=== PATIENT | male | born 1950 | race African-American/Black ===

== ENCOUNTER 2017-09-05 12:30 | Observation (INO) | payer OTHER ==
[2017-09-05 13:24] VITALS: BMI 28.3
[2017-09-05] MEDS: PANTOPRAZOLE 40 MG INJ IV SCH ×2 (14:55→21:50)
[2017-09-05] MEDS: SODIUM CHLORIDE 0.9% 10ML INJ IV SCH ×2 (14:55→21:50)
[2017-09-05] MEDS ORDERED: NA CHLORIDE 0.9% 250 ML ONE (15:19)
--- NOTE | 2017-09-05 17:19 | RAD REPORT ---
EXAM DESCRIPTION: CT - Abdomen Pelvis W Contrast - 09/05/2017 4:59 pm CLINICAL HISTORY: Anemia, abdominal pain COMPARISON: CT November 2016 TECHNIQUE: Biphasic, helical CT imaging of the abdomen and pelvis was performed following 100 ml non -ionic IV contrast. Oral contrast was given. All CT scans are performed using dose optimization technique as appropriate and may include automated exposure control or mA/KV adjustment according to patient size. FINDINGS: No suspicious findings in the lung bases. No pericardial effusion. Liver and spleen show no focal abnormalities. There is no splenomegaly. No pancreatic or peripancreat ic abnormality. Gallbladder and biliary tree are also without suspicious finding. Symmetric renal function is seen with no hydronephrosis or suspicious renal mass. No pyelonephritis o r acute renal parenchymal process. No adrenal abnormality. Urinary bladder shows no suspicious findin g. No gastric dilatation or gastric wall thickening. No dilated small bowel loops. Patient has a large r ight inguinal hernia containing multiple loops of small bowel. No congestion or edema. Ileocecal valv e is still within the peritoneal cavity. A normal appendix is still within the peritoneal cavity. Mildly prominent prostate gland noted. No seminal vesicle abnormality. No free air, free fluid or inf lammatory stranding. No hernia, mass or bulky lymphadenopathy. The urinary bladder is without signif icant finding. No adrenal abnormality. No suspicious bony findings. IMPRESSION: No splenomegaly, mass or other suspicious finding as a source for anemia. Patient has a known large right inguinal hernia containing multiple loops of distal small bowel. No a ctive process seen.
[2017-09-06] MEDS: PANTOPRAZOLE 40 MG INJ IV SCH (08:13)
[2017-09-06] MEDS: SODIUM CHLORIDE 0.9% 10ML INJ IV SCH (08:20)
[2017-09-06] MEDS ORDERED: VERAPAMIL SR 240 MG TABLET PO SCH (09:00)
[2017-09-06] MEDS ORDERED: VALSARTAN 160 MG TAB PO SCH (09:00)
[2017-09-06] MEDS ORDERED: hydroCHLOROthiazide 25 MG TAB PO SCH (09:00)
[2017-09-06 09:28] VITALS: O2SAT 98
[2017-09-06] MEDS ORDERED: NA CHLORIDE 0.9% 250 ML ONE (10:49)
--- NOTE | 2017-09-06 13:49 | HP ---
Date of Admission: 09/05/2017 Reason For Admission: Severe anemia with a hemoglobin of 5 g. History Of Present Illness: A 66-year-old male who has been having iron deficiency, chronic anemia; however, during the exam last week, he was found to have conjunctival pallor. Outpatient blood work showed hemoglobin of 5 g. In view of critical anemia at his age, the patient is admitted for observa tion for transfusion. It has been documented in my office note as well as previous admission, the pa joelle is reluctant to go through GI workup for various reasons including difficulty with finances, mu ltiple discussions were made in the office in view of this severe iron deficiency anemia. Past Medical History: Positive for hypertension. Family History: Noncontributory. Personal History: The patient has no known allergies. Home Medicines: Please refer to the chart. Review of Systems: Denies any chest pain. Physical Examination: General: Revealed a 66-year-old male, pale looking. HEENT: Otherwise negative. Blood pressure normal. Neck: Supple. JVD negative. Chest: Clear. Heart: Regular. Abdomen: Nontender. Extremities: No edema. Assessment: 1.Severe anemia. 2.Probable chronic gastrointestinal loss. 3.Hypertension. Plan: The patient received 2 units of packed RBC, still hemoglobin is 7.5. He will receive another unit of packed RBCs. There is no GI Service. The patient will be discharged and again pressure will be put on the patient to undergo GI workup in view of continued anemia severe enough to need blood t ransfusions. RAMA/STARLA Voice ID: [id number]
[2017-09-06 17:02] LABS: Hematocrit 31.7 % (39.6-49.0)
[2017-09-06 18:37] VITALS: BP 161/83; TEMP 99.3
== END 2017-09-06 18:39 | disposition home or self-care (01) ==
LOC: 2ND 13:06
PROVIDERS: ADMIT Internal Medicine; ATTEND Internal Medicine
PROC: 30233N1 Transfusion of Nonautologous Red Blood Cells into Peripheral Vein, Percutaneous Approach (ICD-10-PCS; principal; 2017-09-05)
DX: D50.9 Iron deficiency anemia, unspecified (principal); I10 Essential (primary) hypertension
CPT/HCPCS: 36415; 36430; 74177; 85014 ×2; 85018 ×2; 86850; 86900; 86901; C9113 ×3; P9016 ×3; Q9967

== ENCOUNTER 2017-10-04 00:24 | Inpatient (IN) | payer OTHER ==
[2017-10-04] MEDS ORDERED: ONDANSETRON 4 MG/2 ML VIAL ONE (02:14)
[2017-10-04] MEDS ORDERED: FENTANYL CITR 100 MCG/2 ML ONE ×5 (02:14→16:38)
[2017-10-04 02:40] LABS: Hematocrit 30.2 % (39.6-49.0); MCH 17.8 pg (27.0-35.0); MCV 60.8 fL (80-100); RBC Red Blood Cell Count 4.98 M/uL (4.33-5.43)
[2017-10-04 03:15] LABS: Urine Blood NEGATIVE (NEG); Urine Glucose NEGATIVE (NEG); Urine Protein TRACE (NEG)
[2017-10-04 03:18] LABS: Urine Bacteria <20 /HPF (NONE SEEN); Urine Culture Reflex Order REFLEXED; Urine RBC <5 /HPF (NONE SEEN)
[2017-10-04 03:26] LABS: Blood Morphology Comment NOTED (NOT SEEN); Platelet Estimate ADEQ
[2017-10-04 03:27] LABS: Anisocytosis 2+; Hypochromasia 3+; Polychromasia 2+
--- NOTE | 2017-10-04 03:27 | EDPHYS ---
Physician Documentation [facility] Name: Orville Menchaca Age: 66 yrs Sex: Male : 1950 Arrival Date: 10/04/2017 Time: 00:24 Bed 15 Private MD: Yonathan Lei R ED Physician Jef Kinney HPI: 10/04 03:48 This 66 yrs old Black Male presents to ER via Ambulatory with complaints of Abdominal wa Pain. 03:48 The patient presents with scrotal pain, with swelling, swelling, of the right inguinal wa area, tenderness, of the right inguinal area. Onset: The symptoms/episode began/occurred 12 hour(s) ago. Modifying factors: The symptoms are alleviated by nothing, the symptoms are aggravated by nothing. Associated signs and symptoms: Pertinent negatives: constipation, diarrhea, dysuria, fever, hematuria, nausea, vomiting. Severity of symptoms: At their worst the symptoms were moderate, in the emergency department the symptoms are unchanged. The patient has not experienced similar symptoms in the past. The patient has not recently seen a physician. h/o intermittent R groin swelling x 1 yr. today, squat to parts picker heavy box and felt large bulge which is now not able to go back in. Historical: - Allergies: 00:38 No Known Allergies; bb - Home Meds: 00:38 verapamil 240 mg Oral TbER 1 tab once daily for Hypertension [Active]; unknown HTN med bb [Active]; - PMHx: 00:38 Hypertension; bb - PSHx: 00:38 umbilical hernia; bb - Immunization history:: Adult Immunizations up to date. - Social history:: Smoking status: Patient uses tobacco products, denies chronic smoking, but will smoke occasionally, Patient uses alcohol, occasionally. Patient/guardian denies using street drugs. - Ebola Screening: : No symptoms or risks identified at this time. - Family history:: not pertinent. - Hospitalizations: : No recent hospitalization is reported. ROS: 03:54 Constitutional: Negative for fever, chills, and weight loss, Eyes: Negative for injury, wa pain, redness, and discharge, ENT: Negative for injury, pain, and discharge, Neck: Negative for injury, pain, and swelling, Cardiovascular: Negative for chest pain, palpitations, and edema, Respiratory: Negative for shortness of breath, cough, wheezing, and pleuritic chest pain, Back: Negative for injury and pain, MS/Extremity: Negative for injury and deformity, Skin: Negative for injury, rash, and discoloration, Neuro: Negative for headache, weakness, numbness, tingling, and seizure, Psych: Negative for depression, anxiety, suicide ideation, homicidal ideation, and hallucinations. 03:54 Abdomen/GI: Positive for abdominal pain, of the right lowe abdomen, Negative for nausea, vomiting, diarrhea. 03:54 : Positive for large non-reducible R inguinal hernia, Negative for urinary frequency, hematuria. 03:54 All other systems are negative. Exam: 03:56 Constitutional: This is a well developed, well nourished patient who is awake, alert, wa and in no acute distress. Head/Face: Normocephalic, atraumatic. Eyes: Pupils equal round and reactive to light, extra-ocular motions intact. Lids and lashes normal. Conjunctiva and sclera are non-icteric and not injected. Cornea within normal limits. Periorbital areas with no swelling, redness, or edema. ENT: Nares patent. No nasal discharge, no septal abnormalities noted. Tympanic membranes are normal and external auditory canals are clear. Oropharynx with no redness, swelling, or masses, exudates, or evidence of obstruction, uvula midline. Mucous membranes moist. Neck: Trachea midline, no thyromegaly or masses palpated, and no cervical lymphadenopathy. Supple, full range of motion without nuchal rigidity, or vertebral point tenderness. No Meningismus. Chest/axilla: Normal chest wall appearance and motion. Nontender with no deformity. No lesions are appreciated. Cardiovascular: Regular rate and rhythm with a normal S1 and S2. No gallops, murmurs, or rubs. Normal PMI, no JVD. No pulse deficits. Respiratory: Lungs have equal breath sounds bilaterally, clear to auscultation and percussion. No rales, rhonchi or wheezes noted. No increased work of breathing, no retractions or nasal flaring. Back: No spinal tenderness. No costovertebral tenderness. Full range of motion. Skin: Warm, dry with normal turgor. Normal color with no rashes, no lesions, and no evidence of cellulitis. MS/ Extremity: Pulses equal, no cyanosis. Neurovascular intact. Full, normal range of motion. Neuro: Awake and alert, GCS 15, oriented to person, place, time, and situation. Cranial nerves II-XII grossly intact. Motor strength 5/5 in all extremities. Sensory grossly intact. Cerebellar exam normal. Normal gait. Psych: Awake, alert, with orientation to person, place and time. Behavior, mood, and affect are within normal limits. 03:56 Abdomen/GI: Inspection: abdomen appears normal, Bowel sounds: normal, Palpation: soft, in all quadrants, mild abdominal tenderness, in the right lower quadrant. 03:56 : Male external genitalia: large R inguinal hernia. non-reducible. Vital Signs: 00:38 BP 186 / 97; Pulse 94; Resp 16 S; Temp 98.7(O); Pulse Ox 100% on R/A; Weight 79.38 kg bb (R); Height 5 ft. 6 in. (167.64 cm) (R); Pain 10/10; 04:17 BP 160 / 89; Pulse 89; Resp 18; Pulse Ox 99% on R/A; Pain 8/10; lc1 05:12 BP 142 / 90; Pulse 83; Resp 18; Temp 98.6(TE); Pulse Ox 99% on R/A; Pain 3/10; lc1 00:38 Body Mass Index 28.25 (79.38 kg, 167.64 cm) bb Procedures: 03:59 Performed hernia reduction: placed in Trendelenburg after a dose of IV fentanyl wa administered. Direct pressure applied for over 2-3 minutes in attempted reduction. unsuccessful. Patient tolerated procedure well. MDM: 01:26 Patient medically screened. ar 04:02 Differential diagnosis: concern for acute incarcerated R inguinal hernia with potential wa bowel obstruction. will check labs, CT and reassess. Data reviewed: vital signs, nurses notes. Test interpretation: by ED physician or midlevel provider: CT abd/pelvis: high grade SBO secondary to large R inguinal hernia with entrapment and incarceration of a moderate length segment of the ileum, including the ileocecal valve and the cecum. Response to treatment: the patient's symptoms have mildly improved after treatment. Physician consultation: Oscar Trent MD. ED course: accepted by Dr. Trent as first case to the OR this AM. . 04:06 Test interpretation: by ED physician or midlevel provider: labs noted for leukocytosis. ar Admission orders: after a detailed discussion of the patient's condition and case, the admit orders are written by me. 10/04 00:47 Order name: Urine Dipstick--Ancillary (enter results); Complete Time: 03:42 2 10/04 02:04 Order name: Basic Metabolic Panel ar 10/04 02:04 Order name: CBC with Diff; Complete Time: 03:42 ar 10/04 02:04 Order name: Hepatic Function ar 10/04 02:04 Order name: Lipase ar 10/04 02:04 Order name: Urine Microscopic Only; Complete Time: 03:42 ar 10/04 02:04 Order name: CT Abd/Pelvis - Without Cont ar 10/04 02:44 Order name: Manual Differential; Complete Time: 03:42 EDMS 10/04 03:13 Order name: Lactate ar 10/04 03:19 Order name: Urine Culture [facility] 10/04 02:04 Order name: IV Saline Lock; Complete Time: 02:08 ar 10/04 02:04 Order name: Labs collected and sent; Complete Time: 02:08 ar 10/04 02:04 Order name: Urine Dipstick-Ancillary (obtain specimen); Complete Time: 02:08 ar Administered Medications: 02:18 Drug: fentaNYL (PF) 100 mcg Route: IVP; Site: right antecubital; mg2 03:11 Follow up: Response: No adverse reaction; Marked relief of symptoms mg2 02:18 Drug: Zofran 4 mg Route: IVP; Site: right antecubital; mg2 03:11 Follow up: Response: No adverse reaction; Marked relief of symptoms mg2 04:01 Not Given (Physician Discretion): NS 0.45 % with KCl 20 mEq/L 1000 ml IV at 125 ml/hr ar once 04:10 Drug: D5-1/2 NS with KCl 10 mEq/L 1000 ml Route: IV; Rate: 100 ml/hr; Site: right lc1 antecubital; 04:21 Follow up: Response: No adverse reaction lc1 04:51 Follow up: IV Status: Infusion continued lc1 04:17 Drug: morphine 4 mg Route: IVP; Site: right antecubital; lc1 04:49 Follow up: Response: Pain is decreased lc1 Disposition: 10/04/17 03:26 Hospitalization ordered by Yonathan Lei for Inpatient Admission. Preliminary diagnosis are Acute Incarcerated Right Inguinal Hernia, Acute small bowel obstruction secondary to right incarcerated inguinal hernia. - Bed requested for Telemetry/MedSurg (Inpatient). - Status is Inpatient Admission. lc1 - Condition is Stable. - Problem is new. - Symptoms are unchanged. UTI on Admission? No Signatures: Dispatcher [employer] EDNi Domingo RN RN kl Ballard, Brenda, RN RN Brittaney Fields 1 Jef Kinney MD MD wa Gardose, Michele, RN RN mg2 Corrections: (The following items were deleted from the chart) 03:26 03:26 Hospitalization Ordered by Yonathan Lei MD for Inpatient Admission. Preliminary ar diagnosis is Acute Incarcerated Right Inguinal Hernia. Bed requested for Telemetry/MedSurg (Inpatient). Status is Inpatient Admission. Condition is Stable. Problem is new. Symptoms are unchanged. UTI on Admission? No. ar 04:07 03:26 10/04/2017 03:26 Hospitalization Ordered by Yonathan Lei MD for Inpatient ar Admission. Preliminary diagnosis is Acute Incarcerated Right Inguinal Hernia. Bed requested for Telemetry/MedSurg (Inpatient). Status is Inpatient Admission. Condition is Stable. Problem is new. Symptoms are unchanged. UTI on Admission? No. ar 04:59 04:07 10/04/2017 03:26 Hospitalization Ordered by Yonathan Lei MD for Inpatient Admission. Preliminary diagnosis is Acute Incarcerated Right Inguinal Hernia; Acute small bowel obstruction secondary to right incarcerated inguinal hernia. Bed requested for Telemetry/MedSurg (Inpatient). Status is Inpatient Admission. Condition is Stable. Problem is new. Symptoms are unchanged. UTI on Admission? No. ar 05:42 04:59 10/04/2017 03:26 Hospitalization Ordered by Yonathan Lei MD for Inpatient [facility] Admission. Preliminary diagnosis is Acute Incarcerated Right Inguinal Hernia; Acute small bowel obstruction secondary to right incarcerated inguinal hernia. Bed requested for Telemetry/MedSurg (Inpatient). Status is Inpatient Admission. Condition is Stable. Problem is new. Symptoms are unchanged. UTI on Admission? No.
--- NOTE | 2017-10-04 03:27 | ER ---
Nurse's Notes [facility] Name: Orville Menchaca Age: 66 yrs Sex: Male : 1950 Arrival Date: 10/04/2017 Time: 00:24 Bed 15 Private MD: Yonathan Lei R Diagnosis: Acute Incarcerated Right Inguinal Hernia;Acute small bowel obstruction secondary to right incarcerated inguinal hernia Presentation: 10/04 00:35 Presenting complaint: Patient states: he started having groin pain today thinks it is bb his hernia pt indicated pain is in the right groin. pt denies N/V/D. Transition of care: patient was not received from another setting of care. Onset of symptoms was October 04, 2017. Risk Assessment: Do you want to hurt yourself or someone else? Patient reports no desire to harm self or others. Initial Sepsis Screen: Does the patient meet any 2 criteria? No. Patient's initial sepsis screen is negative. Does the patient have a suspected source of infection? No. Patient's initial sepsis screen is negative. Care prior to arrival: None. 00:35 Method Of Arrival: Ambulatory bb 00:35 Acuity: YOEL 3 bb Historical: - Allergies: 00:38 No Known Allergies; bb - Home Meds: 00:38 verapamil 240 mg Oral TbER 1 tab once daily for Hypertension [Active]; unknown HTN med bb [Active]; - PMHx: 00:38 Hypertension; bb - PSHx: 00:38 umbilical hernia; bb - Immunization history:: Adult Immunizations up to date. - Social history:: Smoking status: Patient uses tobacco products, denies chronic smoking, but will smoke occasionally, Patient uses alcohol, occasionally. Patient/guardian denies using street drugs. - Ebola Screening: : No symptoms or risks identified at this time. - Family history:: not pertinent. - Hospitalizations: : No recent hospitalization is reported. Screenin:36 Abuse screen: Denies threats or abuse. Denies injuries from another. Nutritional mg2 screening: No deficits noted. Tuberculosis screening: No symptoms or risk factors identified. Fall Risk None identified. Assessment: 00:36 General: Appears in no apparent distress. comfortable, Behavior is calm, cooperative. mg2 Pain: Complains of pain in inguinal area Pain does not radiate. Pain Quality of pain is described as aching, Pain began gradually. Neuro: Level of Consciousness is awake, alert, obeys commands, Oriented to person, place, time, situation. Cardiovascular: Capillary refill < 3 seconds Patient's skin is warm and dry. Respiratory: Airway is patent Respiratory effort is even, unlabored, Respiratory pattern is regular, symmetrical. GI: Abdomen is. EENT: No signs and/or symptoms were reported regarding the EENT system. Derm: Skin is intact, Skin is pink, warm \T\ dry. normal. Musculoskeletal: Circulation, motion, and sensation intact. 00:47 GI: Bowel sounds present X 4 quads. Abd is soft X 4 quads Reports groin pain. mg2 02:54 Reassessment: patient in ct scan. mg2 03:10 Reassessment: patient is to be referred to surgery. endorsed patient to ZABRINA Quispe for mg2 continuity of care. 04:17 Reassessment: Patient and/or family updated on plan of care and expected duration. Pain lc1 level reassessed. patient medicated for pain, remains in Trendelenburg per Dr Trent, patient informed of plan for surgery this am, he will be first case, pillow and blanket given, iv fluids infusing to intact RAC IV . Vital Signs: 00:38 BP 186 / 97; Pulse 94; Resp 16 S; Temp 98.7(O); Pulse Ox 100% on R/A; Weight 79.38 kg bb (R); Height 5 ft. 6 in. (167.64 cm) (R); Pain 10/10; 04:17 BP 160 / 89; Pulse 89; Resp 18; Pulse Ox 99% on R/A; Pain 8/10; lc1 05:12 BP 142 / 90; Pulse 83; Resp 18; Temp 98.6(TE); Pulse Ox 99% on R/A; Pain 3/10; lc1 00:38 Body Mass Index 28.25 (79.38 kg, 167.64 cm) bb ED Course: 00:24 Patient arrived in ED. ds1 00:25 Yonathan Lei MD is Private Physician. ds1 00:32 Tejas Cuevas, ZABRINA is Primary Nurse. mg2 00:37 Triage completed. bb 00:38 Arm band placed on Patient placed in an exam room, on a stretcher, on pulse oximetry. bb 00:46 Patient has correct armband on for positive identification. Placed in gown. Bed in low mg2 position. Call light in reach. Side rails up X 1. Door closed. Warm blanket given. Head of bed elevated. 01:26 Jef Kinney MD is Attending Physician. wa 02:19 Inserted saline lock: 20 gauge in right antecubital area, using aseptic technique. mg2 Blood collected. by ZABRINA Miles. 02:[address] via wheelchair. kw1 02:53 CT Abd/Pelvis - Without Cont In Process Unspecified. EDMS 03:09 CT completed. Patient tolerated procedure well. Patient moved back from CT. kw1 03:22 Primary Nurse role handed off by Tejas Cuevas RN rg2 03:25 Yonathan Lei MD is Hospitalizing Provider. wa 04:17 No provider procedures requiring assistance completed. 1 05:01 Patient admitted, IV remains in place. lc1 Administered Medications: 02:18 Drug: fentaNYL (PF) 100 mcg Route: IVP; Site: right antecubital; mg2 03:11 Follow up: Response: No adverse reaction; Marked relief of symptoms mg2 02:18 Drug: Zofran 4 mg Route: IVP; Site: right antecubital; mg2 03:11 Follow up: Response: No adverse reaction; Marked relief of symptoms mg2 04:01 Not Given (Physician Discretion): NS 0.45 % with KCl 20 mEq/L 1000 ml IV at 125 ml/hr wa once 04:10 Drug: D5-1/2 NS with KCl 10 mEq/L 1000 ml Route: IV; Rate: 100 ml/hr; Site: right lc1 antecubital; 04:21 Follow up: Response: No adverse reaction lc1 04:51 Follow up: IV Status: Infusion continued 1 04:17 Drug: morphine 4 mg Route: IVP; Site: right antecubital; lc1 04:49 Follow up: Response: Pain is decreased [facility] Outcome: 03:26 Decision to Hospitalize by Provider. wa 05:00 Admitted to Tele [facility] 05:00 Condition: stable 05:00 Instructed on the need for admit. 05:01 Admitted to [facility] 05:40 Admitted to Tele accompanied by tech, via stretcher, with chart, Report called to [facility] 05:42 Patient left the ED. [facility] Signatures: Dispatcher [employer] EDMS Salo Elizalde rg2 Shelley Humphreys ds1 Leti Mora RN RN Brittaney Fields lc1 Jef Kinney MD MD ut Ni [facility] Tejas Cuevas RN RN mg2 Corrections: (The following items were deleted from the chart) 04:21 04:10 Brittaney Fields is Primary Nurse. lc1 lc1
[2017-10-04] MEDS ORDERED: D5.45NS W/KCL 20MEQ 1,000 ML IV ONE (03:52)
[2017-10-04] MEDS ORDERED: MORPHINE 4 MG/ML SYR ONE ×2 (04:16→13:13)
[2017-10-04 04:26] LABS: Albumin 3.5 g/dL (3.4-5.0); Bilirubin Direct 0.1 mg/dL (0-0.2); Bilirubin Total 0.5 mg/dL (0.2-1.0); Potassium 4.7 mmol/L (3.5-5.1); Protein, Total 8.3 g/dL (6.4-8.2)
[2017-10-04] MEDS ORDERED: ONDANSETRON 4 MG/2 ML VIAL IV PRN (05:54)
[2017-10-04] MEDS ORDERED: MORPHINE 4 MG/ML SYR IV PRN ×2 (05:54→17:38)
[2017-10-04] MEDS ORDERED: ACETAMINOPHEN 500 MG TAB PO PRN (05:54)
[2017-10-04 05:59] VITALS: BMI 28.0
[2017-10-04] MEDS: D5 0.45 NS 1,000 ML IV SCH ×4 (06:17→20:30)
[2017-10-04] MEDS ORDERED: PNEUMOCOCCAL VACCINE 0.5 ML IMVAC ONE (08:00)
--- NOTE | 2017-10-04 08:28 | RAD REPORT ---
EXAM DESCRIPTION: CT - Abdomen Pelvis Wo Contrast - 10/04/2017 4:20 am CLINICAL HISTORY: Abdominal pain. abd pain. R groin hernia. r/o strangulation COMPARISON: Abdomen Pelvis W Contrast dated 09/05/2017; Abdomen Pelvis W Contrast dated 11/22/2016 TECHNIQUE: CT imaging of the abdomen and pelvis was performed without contrast. Solid organ, bowel a nd vascular assessment is limited due to lack of IV and oral contrast. All CT scans are performed using dose optimization technique as appropriate and may include automated exposure control or mA/KV adjustment according to patient size. FINDINGS: The lower lung loco are clear. The liver, spleen, pancreas, adrenal glands and kidneys are within normal limits for a limited non-co ntrast examination. Multiple dilated small bowel loops are present in the abdomen. There is a very large right-sided ingu inal hernia containing large and small bowel loops is was is mild fluid. Caliber change of the small intestine is noted as it enters hernia sac. The ileum, ileocecal valve and cecum all are located with in the hernia sac. No free intraperitoneal air. No significant free fluid or abscess. The osseous structures are within normal limits. IMPRESSION: Large incarcerated right inguinal hernia is present with significant resultant small-bow el obstruction present. A limited non-contrast examination was performed as detailed.
[2017-10-04] MEDS ORDERED: GLYCOPYRROLATE 0.2 MG/ML SYR ONE ×2 (08:56→17:15)
[2017-10-04] MEDS ORDERED: PROPOFOL 200 MG/20 ML VIAL IV ONE ×2 (08:56→15:35)
[2017-10-04] MEDS ORDERED: LIDOCAINE 2% MPF 5 ML VIAL ONE ×2 (08:57→15:37)
[2017-10-04] MEDS ORDERED: ROCURONIUM 50 MG/5 ML VIAL IV ONE ×2 (08:59→15:37)
[2017-10-04] MEDS ORDERED: NEOSTIGMINE 1 MG/ML -5 ML SYRINGE ONE ×2 (08:59→17:15)
[2017-10-04] MEDS ORDERED: ONDANSETRON HCL 40 MG/20 ML VIAL ONE ×2 (08:59→16:05)
[2017-10-04] MEDS ORDERED: Ringers Lactate 1,000 ML IV ONE ×2 (15:08→17:34)
--- NOTE | 2017-10-04 15:08 | P.HP ---
Date of Service: 10/04/17 PC: This 66-year-old male presents emergency room with severe right groin pain for diagnosis and treatment. HPC: Patient is at a a right inguinal hernia for brought the last year so. Recently squatted to crab picker something and when he did his hernia popped out, he has been unable to replace it. PMH: Hypertension PSHx: NAD SOC: No known allergies SYS REVIEW: States he has otherwise been in good health, denies any trouble voiding on his own. O/E awake alert comfortable at the moment HEENT: Within normal limits Chest: Chest movement equal bilateral ABD: Right inguinal hernia, not able to be reduced LOCO: Intact DATA: Within normal limits IMPRESSION: Right inguinal hernia, incarcerated PLAN: I will take him to the operating room for laparoscopic reduction and repair repair of this right inguinal hernia. We will try and do a Tameka repair. The risks of this procedure have been discussed. The possibility of bleeding, infection, injury to bowel and surrounding blood vessels and nerves was explained. The possibility of recurrence was described. An open an further procedures was also outlined. He understands and wants us to proceed.
[2017-10-04] MEDS ORDERED: CEFAZOLIN/SWI 1gm 1 GM/10 ML SYR ONE (15:37)
[2017-10-04] MEDS ORDERED: DEXAMETHASONE 10 MG/ML VIAL ONE (16:05)
[2017-10-04] MEDS ORDERED: KETOROLAC 30 MG/ML INJ ONE (16:05)
[2017-10-04] MEDS ORDERED: HYDRALAZINE HCL 20 MG/ML VIAL ONE (17:15)
--- NOTE | 2017-10-04 17:23 | P.OP ---
Preoperative diagnosis: Incarcerated right inguinal hernia Postoperative diagnosis: Incarcerated right inguinal hernia Primary procedure: Laparoscopic reduction of incarcerated right inguinal hernia Secondary procedure: Laparoscopic repair of right inguinal hernia with mesh Anesthesia: General Estimated blood loss: Less than 20 cc Specimen: None sudden Findings: Incarcerated right inguinal hernia Operative Technique: The patient brought the operating room and placed supine on the table. After the induction of adequate general endotracheal anesthesia, the area of the abdomen was prepped with a DuraPrep solution after the insertion of a Hayes catheter, he was draped in usual aseptic manner. A subumbilical incision was made. This was brought down through the skin and subcutaneous tissue. The Visiport was used to enter the peritoneal cavity and created pneumoperitoneum to approximately 12 mm of mercury. Under direct vision a 5 mm trocar was placed on the right and left lateral sides of the abdomen. With the patient placed in marked Trendelenburg and rolled to the left we could visualize the right lower quadrant. We could see that there was a marked amount of small bowel heading out towards the internal ring. Applying gentle pressure externally as well as mild traction from the inside we were attached to we able to gradually reduce this hernia out of the scrotum. There was no evidence of vascular compromise. Just at the apex of this there was a adhesion of the distal ileum that resulted in the sliding hernia causing mass incarceration. The bowel was happy been reduced back into the peritoneal cavity was inspected to ensure once again there was no evidence of any compromise. This having mean down the peritoneum was opened from the right superior iliac crest medially. The peritoneum was now dissected down. As we encounter the internal ring, the peritoneum was divided off of the spermatic cord. We considered at dissection medially. Anish's ligament was identified. At this point a piece of right medium mesh was introduced into the preperitoneal space. We were able to fix it using the Pro Tacker to the Anish' s ligament. It was also fixed out laterally. The superior edge was fixed now against the anterior abdominal wall. The peritoneum that had been taken down was placed up over the mesh to securely fixed in place and re-establish peritoneal continuity. At this point the peritoneal cavity was inspected to ensure adequate hemostasis. There was noted be some bleeding from around the trocar site on the left with bilateral abdominal wall. This was controlled using the Endo Close in 2 separate was placed sutures of absorbable material. Attention was now turned towards the umbilicus. With the patient flat on the OR table and taken out of Trendelenburg we were able approximate the facile defect at the umbilicus. 2 used interrupted sutures were placed. 1 using the Endo Close noted with a free stitch. At this point lauren were applied to the skin. At the end of the procedure he was in a stable condition when sent to the recovery room. Needle sponge instrument count were correct. No drains were placed. The Hayes catheter had been discontinued. Complications: None Transferred to: Recovery Room Condition: Good
[2017-10-04 20:07] VITALS: O2SAT 95
[2017-10-04] MEDS: HYDROCODONE/APAP 7.5/325 MG TAB PO PRN (20:30)
[2017-10-05] MEDS: HYDROCODONE/APAP 7.5/325 MG TAB PO PRN ×2 (04:01→10:32)
[2017-10-05] MEDS: D5 0.45 NS 1,000 ML IV SCH (06:48)
[2017-10-05 08:34] VITALS: BP 162/86; TEMP 97.9
--- NOTE | 2017-10-05 09:11 | P.PN ---
Date of Service: 10/05/17 S: Patient feels well today, has been up ambulating, voiding on his own. O: Abdomen is soft, no evidence of hernia, minimal swelling in the scrotum. A: Surgically stable P: Discharge home, see me next week,
--- NOTE | 2017-10-05 17:30 | HP ---
Date of Admission: 10/04/2017 Chief Complaint: Incarcerated hernia. History Of Present Illness: A 66-year-old male was brought to the emergency room because of abdomina l pain. Evaluation was done and he was found to have incarcerated inguinal hernia on the right side. The patient was admitted. There is no history of vomiting, diarrhea, or other GI symptoms. Past Medical History: Positive for hypertension. He has history of severe anemia, possibly related to GI bleeding chronically. Family History: Hypertension present. Personal History: The patient has no known allergies. Home Medicines: Benicar, verapamil. Review of Systems: No fever, chills, rigors. Physical Examination: General: Revealed a 66-year-old male, not in acute distress. HEENT: Negative. Neck: Supple. JVD negative. Chest: Clear. Heart: Regular. Abdomen: Soft. Extremities: No edema. Laboratory Data: Hemoglobin 8.8. Normal kidney function. Assessment: 1.Incarcerated inguinal hernia, right side. 2.Hypertension. 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 Plan: The patient underwent surgery and postoperatively the patient is doing well. The patient will be discharged whenever the surgery team feels comfortable with discharge. Again, I spoke to the patient regarding workup, which he has not done yet in spite of multiple con ferences and discussions with him regarding this issue. JULIOCESAR Voice ID: [id number]
== END 2017-10-05 10:57 | disposition home or self-care (01) | DRG 352 ==
LOC: ER 00:24 → ERHOLD 04:13 → 4TH 05:11
PROVIDERS: ADMIT Internal Medicine; ATTEND Internal Medicine
PROC: 0YU54JZ Supplement Right Inguinal Region with Synthetic Substitute, Percutaneous Endoscopic Approach (ICD-10-PCS; principal; 2017-10-04 15:30)
DX: K40.30 Unilateral inguinal hernia, with obstruction, without gangrene, not specified as recurrent (principal); I10 Essential (primary) hypertension; Z72.0 Tobacco use; D50.0 Iron deficiency anemia secondary to blood loss (chronic)
CPT/HCPCS: 36415; 74176; 80048; 80076; 81003; 81015; 83605; 83690; 85025; 87077; 87086; 87088; 87186; 96361; 96374; 96375; 99285; J0360; J0690; J1100; J2405; J2710; J3010

== ENCOUNTER 2022-02-28 15:53 | Emergency (ER) | payer MEDICARE ==
--- OUTSIDE RECORDS SUMMARY | 2022-02-28 15:56 | XMS REPORT | Continuity of Care Document ---
:[address] [facility] t Address [address] [place] [address] Care Team Providers Name Role Phone Christopher Roland Attending Clinician Unavailable Tumelson_A Attending Clinician Unavailable Tumelson_A Admitting Clinician Unavailable Payers Payer Name Policy Type Policy Number Effective Date Expiration Date benigno [facility] [id number] (MEDICARE 00:00:00 REPLACEMENT HMO) Problems Condition Condition Condition Status Onset Resolution Last Treating Co mments Source Name Details Category Date Date Treatment Clinician Date [id number] Mixed Problem Common hyperlipid Spirit emia - [facility] Leukocytos Leukocytos Problem C ommon is is, Spirit unspecifie - [facility] d type [facility] [id number] Lymphocyto Problem Com mon sis [facility] - [facility] [id number] Other Problem Common obesity Spirit due to - [facility] excess [facility] [id number] Essential Problem Comm on (primary) Spirit hypertensi - [facility] on [facility] [id number] Body mass Problem Com mon index Spirit [BMI] - [facility] 30.0-30.9, [facility] [id number] Alcohol Problem Common use [facility] disorder, [facility] [id number] Tobacco Problem Commo n use Spirit disorder, - [facility] continuous [facility] Allergies, Adverse Reactions, Alerts This patient has no known allergies or adverse reactions. Social History Social Habit Start Date Stop Date Quantity Comments Source History of Tobacco Current Smoker Co mmon [facility] - [facility] Use [facility] Sex Assigned At [facility] Smoking Status Start Date Stop Date Source Current Smoker 2021-12-15 00:00:00 Common [facility] Medications Ordered Filled Start Stop Current Ordering Indication Dosage Frequency Signature Comments Components Source Medication Medication Date Date Medication? Clinician (SIG) Name Name Benzonatate Benzonatate 2021- No 1{capsu Benzonatat 100 MG 100 MG 10-20 le_as_n e 100 MG 00:00: 00:00 eeded} 00 :00 Benzonatate Benzonatate No 1{capsu Benzonatat 100 MG 100 MG 10-20 le_as_n e 100 MG 00:00: 00:00 eeded} 00 :00 amLODIPine amLODIPine No QD amLODIPine Besylate 10 Besylate 10 Besylate MG MG 10 MG Olmesartan Olmesartan No QD Olmesartan Medoxomil Medoxomil Medoxomil 40 MG 40 MG 40 MG Metoprolol Metoprolol No QD Metoprolol Succinate Succinate Succinate ER 50 MG ER 50 MG ER 50 MG amLODIPine amLODIPine No QD amLODIPine Besylate 10 Besylate 10 Besylate MG MG 10 MG Olmesartan Olmesartan No QD Olmesartan Medoxomil Medoxomil Medoxomil 40 MG 40 MG 40 MG Metoprolol Metoprolol No QD Metoprolol Succinate Succinate Succinate ER 50 MG ER 50 MG ER 50 MG Olmesartan Olmesartan No QD Olmesartan Medoxomil Medoxomil Medoxomil 40 MG 40 MG 40 MG Metoprolol Metoprolol No QD Metoprolol Succinate Succinate Succinate ER 50 MG ER 50 MG ER 50 MG amLODIPine amLODIPine No QD amLODIPine Besylate 10 Besylate 10 Besylate MG MG 10 MG Olmesartan Olmesartan No QD Olmesartan Medoxomil Medoxomil Medoxomil 40 MG 40 MG 40 MG Metoprolol Metoprolol No QD Metoprolol Succinate Succinate Succinate ER 50 MG ER 50 MG ER 50 MG amLODIPine amLODIPine No QD amLODIPine Besylate 10 Besylate 10 Besylate MG MG 10 MG Olmesartan Olmesartan No QD Olmesartan Medoxomil Medoxomil Medoxomil 40 MG 40 MG 40 MG Metoprolol Metoprolol No QD Metoprolol Succinate Succinate Succinate ER 50 MG ER 50 MG ER 50 MG amLODIPine amLODIPine No QD amLODIPine Besylate 10 Besylate 10 Besylate MG MG 10 MG amLODIPine amLODIPine No amLODIPine Besylate 10 Besylate 10 Besylate MG MG 10 MG Olmesartan Olmesartan No QD Olmesartan Medoxomil Medoxomil Medoxomil 40 MG 40 MG 40 MG amLODIPine amLODIPine No QD amLODIPine Besylate 10 Besylate 10 Besylate MG MG 10 MG Metoprolol Metoprolol No Metoprolol Succinate Succinate Succinate ER 50 MG ER 50 MG ER 50 MG Olmesartan Olmesartan No Olmesartan Medoxomil Medoxomil Medoxomil 40 MG 40 MG 40 MG Metoprolol Metoprolol No QD Metoprolol Succinate Succinate Succinate ER 50 MG ER 50 MG ER 50 MG amLODIPine amLODIPine No amLODIPine Besylate 10 Besylate 10 Besylate MG MG 10 MG Olmesartan Olmesartan No QD Olmesartan Medoxomil Medoxomil Medoxomil 40 MG 40 MG 40 MG amLODIPine amLODIPine No QD amLODIPine Besylate 10 Besylate 10 Besylate MG MG 10 MG Metoprolol Metoprolol No Metoprolol Succinate Succinate Succinate ER 50 MG ER 50 MG ER 50 MG Olmesartan Olmesartan No Olmesartan Medoxomil Medoxomil Medoxomil 40 MG 40 MG 40 MG Metoprolol Metoprolol No QD Metoprolol Succinate Succinate Succinate ER 50 MG ER 50 MG ER 50 MG Olmesartan Olmesartan No Olmesartan Medoxomil Medoxomil Medoxomil 40 MG 40 MG 40 MG Metoprolol Metoprolol No Metoprolol Succinate Succinate Succinate ER 50 MG ER 50 MG ER 50 MG Olmesartan Olmesartan No QD Olmesartan Medoxomil Medoxomil Medoxomil 40 MG 40 MG 40 MG amLODIPine amLODIPine No amLODIPine Besylate 10 Besylate 10 Besylate MG MG 10 MG amLODIPine amLODIPine No QD amLODIPine Besylate 10 Besylate 10 Besylate MG MG 10 MG Metoprolol Metoprolol No QD Metoprolol Succinate Succinate Succinate ER 50 MG ER 50 MG ER 50 MG Olmesartan Olmesartan No Olmesartan Medoxomil Medoxomil Medoxomil 40 MG 40 MG 40 MG Metoprolol Metoprolol No Metoprolol Succinate Succinate Succinate ER 50 MG ER 50 MG ER 50 MG Olmesartan Olmesartan No QD Olmesartan Medoxomil Medoxomil Medoxomil 40 MG 40 MG 40 MG amLODIPine amLODIPine No amLODIPine Besylate 10 Besylate 10 Besylate MG MG 10 MG amLODIPine amLODIPine No QD amLODIPine Besylate 10 Besylate 10 Besylate MG MG 10 MG Metoprolol Metoprolol No QD Metoprolol Succinate Succinate Succinate ER 50 MG ER 50 MG ER 50 MG Olmesartan Olmesartan No Olmesartan Medoxomil Medoxomil Medoxomil 40 MG 40 MG 40 MG Metoprolol Metoprolol No QD Metoprolol Succinate Succinate Succinate ER 50 MG ER 50 MG ER 50 MG Olmesartan Olmesartan No QD Olmesartan Medoxomil Medoxomil Medoxomil 40 MG 40 MG 40 MG amLODIPine amLODIPine No QD amLODIPine Besylate 10 Besylate 10 Besylate MG MG 10 MG amLODIPine amLODIPine No amLODIPine Besylate 10 Besylate 10 Besylate MG MG 10 MG Metoprolol Metoprolol No Metoprolol Succinate Succinate Succinate ER 50 MG ER 50 MG ER 50 MG Olmesartan Olmesartan No Olmesartan Medoxomil Medoxomil Medoxomil 40 MG 40 MG 40 MG Metoprolol Metoprolol No Metoprolol Succinate Succinate Succinate ER 50 MG ER 50 MG ER 50 MG Olmesartan Olmesartan No QD Olmesartan Medoxomil Medoxomil Medoxomil 40 MG 40 MG 40 MG amLODIPine amLODIPine No QD amLODIPine Besylate 10 Besylate 10 Besylate MG MG 10 MG amLODIPine amLODIPine No amLODIPine Besylate 10 Besylate 10 Besylate MG MG 10 MG Metoprolol Metoprolol No QD Metoprolol Succinate Succinate Succinate ER 50 MG ER 50 MG ER 50 MG amLODIPine amLODIPine No QD amLODIPine Besylate 10 Besylate 10 Besylate MG MG 10 MG Olmesartan Olmesartan No Olmesartan Medoxomil Medoxomil Medoxomil 40 MG 40 MG 40 MG Metoprolol Metoprolol No Metoprolol Succinate Succinate Succinate ER 50 MG ER 50 MG ER 50 MG Olmesartan Olmesartan No QD Olmesartan Medoxomil Medoxomil Medoxomil 40 MG 40 MG 40 MG Metoprolol Metoprolol No QD Metoprolol Succinate Succinate Succinate ER 50 MG ER 50 MG ER 50 MG amLODIPine amLODIPine No amLODIPine Besylate 10 Besylate 10 Besylate MG MG 10 MG Olmesartan Olmesartan No Olmesartan Medoxomil Medoxomil Medoxomil 40 MG 40 MG 40 MG Metoprolol Metoprolol No QD Metoprolol Succinate Succinate Succinate ER 50 MG ER 50 MG ER 50 MG Olmesartan Olmesartan No QD Olmesartan Medoxomil Medoxomil Medoxomil 40 MG 40 MG 40 MG amLODIPine amLODIPine No QD amLODIPine Besylate 10 Besylate 10 Besylate MG MG 10 MG amLODIPine amLODIPine No amLODIPine Besylate 10 Besylate 10 Besylate MG MG 10 MG Metoprolol Metoprolol No Metoprolol Succinate Succinate Succinate ER 50 MG ER 50 MG ER 50 MG Olmesartan Olmesartan No Olmesartan Medoxomil Medoxomil Medoxomil 40 MG 40 MG 40 MG Metoprolol Metoprolol No Metoprolol Succinate Succinate Succinate ER 50 MG ER 50 MG ER 50 MG Olmesartan Olmesartan No QD Olmesartan Medoxomil Medoxomil Medoxomil 40 MG 40 MG 40 MG amLODIPine amLODIPine No QD amLODIPine Besylate 10 Besylate 10 Besylate MG MG 10 MG amLODIPine amLODIPine No amLODIPine Besylate 10 Besylate 10 Besylate MG MG 10 MG Metoprolol Metoprolol No QD Metoprolol Succinate Succinate Succinate ER 50 MG ER 50 MG ER 50 MG amLODIPine amLODIPine No QD amLODIPine Besylate 10 Besylate 10 Besylate MG MG 10 MG Olmesartan Olmesartan No Olmesartan Medoxomil Medoxomil Medoxomil 40 MG 40 MG 40 MG Metoprolol Metoprolol No Metoprolol Succinate Succinate Succinate ER 50 MG ER 50 MG ER 50 MG Olmesartan Olmesartan No QD Olmesartan Medoxomil Medoxomil Medoxomil 40 MG 40 MG 40 MG Metoprolol Metoprolol No QD Metoprolol Succinate Succinate Succinate ER 50 MG ER 50 MG ER 50 MG amLODIPine amLODIPine No amLODIPine Besylate 10 Besylate 10 Besylate MG MG 10 MG Olmesartan Olmesartan No Olmesartan Medoxomil Medoxomil Medoxomil 40 MG 40 MG 40 MG amLODIPine amLODIPine No amLODIPine Besylate 10 Besylate 10 Besylate MG MG 10 MG Metoprolol Metoprolol No Metoprolol Succinate Succinate Succinate ER 50 MG ER 50 MG ER 50 MG Immunizations Ordered Immunization Filled Immunization Date Status Commen ts Source Name Name FLUZONE HIGH DOSE FLUZONE HIGH DOSE 2021-12-15 Completed [facility] OVER 65 OVER 65 09:14:00 [facility] FLUZONE HIGH DOSE FLUZONE HIGH DOSE 2021-12-15 Completed [facility] OVER 65 OVER 65 09:14:00 [facility] Prevnar 13 (PCV13) Prevnar 13 (PCV13) 2021-03-13 Completed [facility] 11:09:00 - [facility] Prevnar 13 (PCV13) Prevnar 13 (PCV13) 2021-03-13 Completed [facility] 11:09:00 [facility] Prevnar 13 (PCV13) Prevnar 13 (PCV13) 2021-03-13 Completed [facility] 11:09:00 [facility] Prevnar 13 (PCV13) Prevnar 13 (PCV13) 2021-03-13 Completed [facility] 11:09:00 [facility] Prevnar 13 (PCV13) Prevnar 13 (PCV13) 2021-03-13 Completed [facility] 11:09:00 [facility] Prevnar 13 (PCV13) Prevnar 13 (PCV13) 2021-03-13 Completed [facility] 11:09:00 [facility] Prevnar 13 (PCV13) Prevnar 13 (PCV13) 2021-03-13 Completed [facility] 11:09:00 [facility] Prevnar 13 (PCV13) Prevnar 13 (PCV13) 2021-03-13 Completed [facility] 11:09:00 [facility] Prevnar 13 (PCV13) Prevnar 13 (PCV13) 2021-03-13 Completed [facility] 11:09:00 [facility] Prevnar 13 (PCV13) Prevnar 13 (PCV13) 2021-03-13 Completed [facility] 11:09:00 [facility] Prevnar 13 (PCV13) Prevnar 13 (PCV13) 2021-03-13 Completed [facility] 11:09:00 [facility] Prevnar 13 (PCV13) Prevnar 13 (PCV13) 2021-03-13 Completed [facility] 11:09:00 - [facility] Prevnar 13 (PCV13) Prevnar 13 (PCV13) 2021-03-13 Completed [facility] 11:09:00 - [facility] Prevnar 13 (PCV13) Prevnar 13 (PCV13) 2021-03-13 Completed [facility] 11:09:00 - [facility] Prevnar 13 (PCV13) Prevnar 13 (PCV13) 2021-03-13 Completed [facility] 11:09:00 - [facility] FluAD FluAD 2020-12-10 Completed [facility] 09:51:00 - [facility] FluAD FluAD 2020-12-10 Completed [facility] 09:51:00 - [facility] FluAD FluAD 2020-12-10 Completed [facility] 09:51:00 - [facility] FluAD FluAD 2020-12-10 Completed [facility] 09:51:00 - [facility] FluAD FluAD 2020-12-10 Completed [facility] 09:51:00 - [facility] FluAD FluAD 2020-12-10 Completed [facility] 09:51:00 - [facility] FluAD FluAD 2020-12-10 Completed [facility] 09:51:00 - [facility] FluAD FluAD 2020-12-10 Completed [facility] 09:51:00 - [facility] FluAD FluAD 2020-12-10 Completed [facility] 09:51:00 - [facility] FluAD FluAD 2020-12-10 Completed [facility] 09:51:00 - [facility] FluAD FluAD 2020-12-10 Completed [facility] 09:51:00 - [facility] FluAD FluAD 2020-12-10 Completed [facility] 09:51:00 - [facility] FluAD FluAD 2020-12-10 Completed [facility] 09:51:00 - [facility] FluAD FluAD 2020-12-10 Completed [facility] 09:51:00 - [facility] FluAD FluAD 2020-12-10 Completed [facility] 09:51:00 - [facility] FluAD FluAD 2020-12-10 Completed [facility] 09:51:00 [facility] Vital Signs Vital Name Observation Time Observation Value Comments Source height 2021-12-15 08:50:00 66 [in_i] [facility] weight 2021-12-15 08:50:00 173.7 [lb_av] [facility] temperature 2021-12-15 08:50:00 97.3 [degF] [facility] bmi 2021-12-15 08:50:00 28.03 kg/m2 [facility] oximetry 2021-12-15 08:50:00 96 % [facility] respiratory rate 2021-12-15 08:50:00 17 /min Comm on [facility] blood pressure 2021-12-15 08:50:00 130 mm[Hg] [facility] systolic [facility] blood pressure 2021-12-15 08:50:00 78 mm[Hg] [facility] diastolic [facility] height 2021-10-20 08:00:00 66 [in_i] [facility] weight 2021-10-20 08:00:00 184.1 [lb_av] [facility] bmi 2021-10-20 08:00:00 29.71 kg/m2 [facility] height 2021-09-03 08:40:00 66 [in_i] [facility] weight 2021-09-03 08:40:00 184.1 [lb_av] [facility] temperature 2021-09-03 08:40:00 97.9 [degF] [facility] bmi 2021-09-03 08:40:00 29.71 kg/m2 [facility] oximetry 2021-09-03 08:40:00 100 % [facility] respiratory rate 2021-09-03 08:40:00 18 /min Comm on [facility] blood pressure 2021-09-03 08:40:00 138 mm[Hg] Common [facility] - systolic [facility] blood pressure 2021-09-03 08:40:00 76 mm[Hg] Common [facility] - diastolic [facility] height 2021-04-08 10:50:00 66 [in_i] Common [facility] weight 2021-04-08 10:50:00 183.6 [lb_av] Common [facility] temperature 2021-04-08 10:50:00 98.4 [degF] Common [facility] bmi 2021-04-08 10:50:00 29.63 kg/m2 [facility] oximetry 2021-04-08 10:50:00 99 % [facility] respiratory rate 2021-04-08 10:50:00 18 /min Comm on [facility] blood pressure 2021-04-08 10:50:00 135 mm[Hg] Common [facility] - systolic [facility] blood pressure 2021-04-08 10:50:00 67 mm[Hg] Common [facility] - diastolic [facility] height 2021-03-13 09:50:00 66 [in_i] Common [facility] weight 2021-03-13 09:50:00 177.6 [lb_av] Common [facility] temperature 2021-03-13 09:50:00 97.2 [degF] Common [facility] bmi 2021-03-13 09:50:00 28.66 kg/m2 Common [facility] oximetry 2021-03-13 09:50:00 99 % Common [facility] respiratory rate 2021-03-13 09:50:00 18 /min Comm on [facility] blood pressure 2021-03-13 09:50:00 132 mm[Hg] Common [facility] - systolic [facility] blood pressure 2021-03-13 09:50:00 76 mm[Hg] Common [facility] - diastolic [facility] height 2021-03-13 10:00:00 66 [in_i] Common [facility] weight 2021-03-13 10:00:00 177.6 [lb_av] Common [facility] temperature 2021-03-13 10:00:00 97.7 [degF] [facility] bmi 2021-03-13 10:00:00 28.66 kg/m2 Common [facility] oximetry 2021-03-13 10:00:00 99 % [facility] blood pressure 2021-03-13 10:00:00 132 mm[Hg] Common [facility] - systolic [facility] blood pressure 2021-03-13 10:00:00 76 mm[Hg] Common [facility] - diastolic [facility] Procedures This patient has no known procedures. Encounters Start End Encounter Admission Attending Care Care Encounter Source Date/Time Date/Time Type Type Clinicians Facility Department ID 2022-02-19 Outpatient Roland, STLMLC STLC [id number] Common 09:36:[address] [facility] 2021-12-11 Outpatient Roland, STLMLC STLC [id number] Common 10:36:[address] [facility] 2021-09-02 Outpatient Roland, STLMLC STLMLC [id number] Common 09:43:[address] [facility] 2021-07-06 Outpatient Roland, STLMLC STLMLC [id number] Common 16:03:[address] [facility] 2021-04-01 Outpatient Roland, STLMLC STLMLC [id number] Common 14:31:[address] [facility] 2021-04-01 Outpatient Roland, STLMLC STLMLC [id number] Common 14:30:[address] [facility] 2021-04-01 Outpatient Roland, STLMLC STLMLC [id number] Common 14:14:[id number] [facility] 2021-04-01 Outpatient Roland, STLMLC STLMLC [id number] Common 13:57:[address] [facility] 2021-12-15 2021-12-15 OFFICE STLMLC STLMLC [id number] Co mmon 00:00:00 00:00:00 VISIT [facility] PT - CHI LEVEL 4 [facility] 2021-12-07 2021-12-07 (TEL) STLMLC STLMLC [id number] Co mmon 00:00:00 00:00:00 [facility] 2021-11-27 2021-11-27 (TEL) STLMLC STLMLC [id number] Co mmon 00:00:00 00:00:00 [facility] 2021-10-20 2021-10-20 OL DIG E/M STLMLC STLMLC [id number] Common 00:00:00 00:00:00 C 11-20 [facility] 2021-10-19 2021-10-19 (TEL) STLMLC STLMLC [id number] Co mmon 00:00:00 00:00:00 [facility] 2021-10-05 2021-10-05 (TEL) STLMLC STLMLC [id number] Co mmon 00:00:00 00:00:00 [facility] 2021-09-18 2021-09-18 Outpatient Tumelson_A DMG [id number] [facility] 03:27:00 03:27:00 [facility] 2021-09-03 2021-09-03 OFFICE STLMLC STLMLC [id number] Co mmon 00:00:00 00:00:00 VISIT [facility] PT - CHI LEVEL 4 [facility] 2021-06-05 2021-06-05 (TEL) STLMLC STLMLC [id number] Co mmon 00:00:00 00:00:00 [facility] 2021-04-16 2021-04-16 (TEL) STLMLC STLMLC [id number] Co mmon 00:00:00 00:00:00 [facility] - [facility] 2021-04-08 2021-04-08 OFFICE STLMLC STLMLC [id number] Co mmon 00:00:00 00:00:00 VISIT Spirit ESTAB PT - CHI LEVEL 4 [facility] 2021-03-13 2021-03-13 OFFICE STLMLC STLMLC [id number] Co mmon 00:00:00 00:00:00 VISIT EST Spir it PT LEVEL 3 - CHI [facility] 2021-03-13 2021-03-13 SUB ANNUAL STLMLC STLMLC [id number] Common 00:00:00 00:00:00 MCR [facility] WELLNESS - CHI VISIT [facility] 2021-03-12 2021-03-12 (TEL) STLMLC STLMLC [id number] Co mmon 00:00:00 00:00:00 [facility] 2020-12-10 2020-12-10 Outpatient STLC STLC [id number] Common 00:00:00 00:00:00 [facility] 2020-09-05 2020-09-05 Outpatient Tumelson_A DMG DMG [id number] [facility] 06:40:00 06:40:00 [id number] [facility] 2020-07-18 2020-07-18 [id number] [facility] 08:00:00 08:00:00 0514 [facility] Results Test Description Test Time Test Comments Results Result Comments Source Daniela 2021-03-25 00:00:00 result
[2022-02-28] MEDS ORDERED: TENECTEPLASE 50 MG/10 ML VIAL IV ONE (16:20)
[2022-02-28] MEDS ORDERED: NA CHLORIDE 0.9% 1,000 ML ONE (16:20)
[2022-02-28] MEDS ORDERED: FOLIC ACID 5 MG/ML VIAL ONE (16:20)
[2022-02-28 16:22] LABS: Absolute Lymphocytes (CBC) 3.5 K/uL (0.7-4.9); Hematocrit 46.6 % (39.6-49.0); Lymphocytes % 25.9 % (15.3-44.8); MCV 82.1 fL (80-100); MPV 7.4 fL (7.6-11.3); RBC Red Blood Cell Count 5.67 M/uL (4.33-5.43)
[2022-02-28 16:26] LABS: Protime INR 0.99
--- NOTE | 2022-02-28 16:26 | RAD REPORT ---
EXAM DESCRIPTION: CT - Ct Stroke Brain Wo Cont - 02/28/2022 4:14 pm CLINICAL HISTORY: Neuro deficit, acute, stroke suspected Headache, drowsiness, CVA symptomology COMPARISON: No comparisons TECHNIQUE: All CT scans are performed using dose optimization technique as appropriate and may inclu de automated exposure control or mA/KV adjustment according to patient size. FINDINGS: No intracranial hemorrhage, hydrocephalus or extra-axial fluid collection.No areas of brai n edema or evidence of midline shift. The paranasal sinuses and mastoids are clear. The calvarium is intact. IMPRESSION: No acute intracranial abnormality. The findings were discussed with doctor Agustin in the emergency room on 02/28/2022 at 4:02 p.m. by telephone.
--- NOTE | 2022-02-28 16:32 | EDPHYS ---
Physician Documentation [facility] Name: Orville Menchaca Age: 71 yrs Sex: Male : 1950 Arrival Date: 02/28/2022 Time: 15:54 Bed 15 Private MD: ED Physician Marck Agustin HPI: 02/28 16:20 This 71 yrs old Black Male presents to ER via Ambulatory with complaints of Numbness Of erika Arm, Slurred Speech. 16:20 The patient or guardian complains of decreased range of motion, weakness. erika 16:20 The complaints affect the right bicep, dorsal aspect of right forearm, right tricep and erika palmar aspect of right forearm. Context: The problem was sustained at home, resulted from CVA. 16:21 The patient's problem is reported as a facial droop, on right, paresthesias, in right erika upper extremity. Onset: The symptoms/episode began/occurred at 14:30. Duration: The episode is continuous. Context: the episode(s) was witnessed, by family, daughter, symptoms became apparent at 14:30. occurred at home, occurred while the patient was at rest, FOOTBALL ON TV. The symptoms are alleviated by nothing. The symptoms are aggravated by nothing. Associated signs and symptoms: The patient has no apparent associated signs or symptoms. Associated signs and symptoms: Pertinent positives:. Severity of symptoms: At their worst the symptoms were moderate in the emergency department the symptoms are unchanged. Patient's baseline: Neuro: alert and fully oriented. The patient has not experienced similar symptoms in the past. Historical: - Allergies: 16:10 No Known Allergies; hb - PMHx: 16:10 Hypertension; hb - Immunization history:: Adult Immunizations unknown. - Family history:: not pertinent. - Social history:: Smoking status: unknown. ROS: 16:21 Constitutional: Negative for fever, chills, and weight loss, Eyes: Negative for injury, erika pain, redness, and discharge, ENT: Negative for injury, pain, and discharge, Neck: Negative for injury, pain, and swelling, Cardiovascular: Negative for chest pain, palpitations, and edema, Respiratory: Negative for shortness of breath, cough, wheezing, and pleuritic chest pain, Abdomen/GI: Negative for abdominal pain, nausea, vomiting, diarrhea, and constipation, Back: Negative for injury and pain, : Negative for injury, bleeding, discharge, and swelling, MS/Extremity: Negative for injury and deformity, Skin: Negative for injury, rash, and discoloration, Psych: Negative for depression, anxiety, suicide ideation, homicidal ideation, and hallucinations, Allergy/Immunology: Negative for hives, rash, and allergies, Endocrine: Negative for neck swelling, polydipsia, polyuria, polyphagia, and marked weight changes, Hematologic/Lymphatic: Negative for swollen nodes, abnormal bleeding, and unusual bruising. 16:21 Neuro: Positive for speech changes, weakness, of the right cheek and right jaw. Exam: 16:21 Radiologist reports: NEGATIVE erika 16:24 Constitutional: This is a well developed, well nourished patient who is awake, alert, erika and in no acute distress. Eyes: Pupils equal round and reactive to light, extra-ocular motions intact. Lids and lashes normal. Conjunctiva and sclera are non-icteric and not injected. Cornea within normal limits. Periorbital areas with no swelling, redness, or edema. ENT: Nares patent. No nasal discharge, no septal abnormalities noted. Tympanic membranes are normal and external auditory canals are clear. Oropharynx with no redness, swelling, or masses, exudates, or evidence of obstruction, uvula midline. Mucous membranes moist. Neck: Trachea midline, no thyromegaly or masses palpated, and no cervical lymphadenopathy. Supple, full range of motion without nuchal rigidity, or vertebral point tenderness. No Meningismus. Chest/axilla: Normal chest wall appearance and motion. Nontender with no deformity. No lesions are appreciated. Cardiovascular: Regular rate and rhythm with a normal S1 and S2. No gallops, murmurs, or rubs. Normal PMI, no JVD. No pulse deficits. Respiratory: Lungs have equal breath sounds bilaterally, clear to auscultation and percussion. No rales, rhonchi or wheezes noted. No increased work of breathing, no retractions or nasal flaring. Abdomen/GI: Soft, non-tender, with normal bowel sounds. No distension or tympany. No guarding or rebound. No evidence of tenderness throughout. Back: No spinal tenderness. No costovertebral tenderness. Full range of motion. Male : Normal genitalia with no discharge or lesions. Skin: Warm, dry with normal turgor. Normal color with no rashes, no lesions, and no evidence of cellulitis. MS/ Extremity: Pulses equal, no cyanosis. Neurovascular intact. Full, normal range of motion. Psych: Awake, alert, with orientation to person, place and time. Behavior, mood, and affect are within normal limits. 16:24 Neuro: Orientation: is normal, appropriate for stated age, no acute changes, Mentation: is normal, appropriate for stated age, no acute changes, Memory: is normal, appropriate for stated age, no acute changes, Cranial nerves: facial droop noted on right, with forehead spared. Cerebellar function: dysmetria is noted on the right, heel to denton testing is normal, Motor: strength is 4/5 in the right arm, Sensation: is normal, no obvious gross deficits, appropriate no acute changes, Gait: not tested. seizure activity, is not displayed by the patient. 16:44 ECG was reviewed by the Attending Physician. [facility] Vital Signs: 15:54 BP 165 / 85; Pulse 77; Resp 16; Temp 98.3; Pulse Ox 100% on R/A; Weight 80.74 kg; hb Height 5 ft. 9 in. (175.26 cm); Pain 0/10; 16:30 BP 152 / 85; Pulse 73; Resp 18; Pulse Ox 99% on R/A; eh3 17:30 BP 149 / 80; Pulse 78; Resp 18; Pulse Ox 100% on R/A; eh3 18:30 BP 142 / 78; Pulse 72; Resp 18; Pulse Ox 99% on R/A; eh3 15:54 Body Mass Index 26.29 (80.74 kg, 175.26 cm) NIH Stroke Scale Scores: 16:00 NIHSS Score: 4 eh3 16:24 NIHSS Score: 6 [facility] Odette Coma Score: 16:24 Eye Response: spontaneous(4). Verbal Response: oriented(5). Motor Response: obeys [facility] commands(6). Total: 15. MDM: 16:06 Patient medically screened. [facility] 16:29 Differential diagnosis: CVA, TIA, paralysis, metabolic disorder. Data reviewed: vital [facility] signs, nurses notes, lab test result(s), EKG, radiologic studies, CT scan, plain films. Data interpreted: groundwater monitoring technician: rate is 77 beats/min, rhythm is regular, Pulse oximetry: on room air is 100 %. Test interpretation: by ED physician or midlevel provider: ECG, plain radiologic studies. Counseling: I had a detailed discussion with the patient and/or guardian regarding: the historical points, exam findings, and any diagnostic results supporting the discharge/admit diagnosis, lab results, radiology results, the need to transfer to another facility, for higher level of care, [facility] does not immediately have the required specialist. 16:30 ED course: ONSET 230PM. [facility] 02/28 16:08 Order name: Basic Metabolic Panel; Complete Time: 17:36 [facility] 02/28 16:08 Order name: CBC with Diff; Complete Time: 17:36 [facility] 02/28 16:08 Order name: LFT's; Complete Time: 17:36 [facility] 02/28 16:08 Order name: Magnesium; Complete Time: 17:36 [facility] 02/28 16:08 Order name: NT PRO-BNP; Complete Time: 17:36 [facility] 02/28 16:08 Order name: PT-INR; Complete Time: 16:33 [facility] 02/28 16:08 Order name: Troponin HS; Complete Time: 17:36 [facility] 02/28 16:08 Order name: XRAY Chest (1 view) [facility] 02/28 16:08 Order name: Sed Rate; Complete Time: 17:36 [facility] 02/28 16:08 Order name: CRP; Complete Time: 17:36 [facility] 02/28 16:08 Order name: CT Stroke Brain w/o Contrast; Complete Time: 16:33 [facility] 02/28 16:08 Order name: CT Head Angio; Complete Time: 17:36 [facility] 02/28 16:08 Order name: SARS RAPID; Complete Time: 17:36 [facility] 02/28 16:20 Order name: Glucose, Ancillary Testing; Complete Time: 16:33 [facility] 02/28 16:08 Order name: EKG; Complete Time: 16:09 [facility] 02/28 16:08 Order name: Cardiac monitoring; Complete Time: 16:18 [facility] 02/28 16:08 Order name: EKG - Nurse/Tech; Complete Time: 16:18 [facility] 02/28 16:08 Order name: IV Saline Lock; Complete Time: 16:18 [facility] 02/28 16:08 Order name: Labs collected and sent; Complete Time: 16:18 [facility] 02/28 16:08 Order name: O2 Per Protocol; Complete Time: 17:11 [facility] 02/28 16:08 Order name: O2 Sat Monitoring; Complete Time: 16:18 erika 02/28 16:08 Order name: Urine Dipstick-Ancillary (obtain specimen); Complete Time: 18:55 erika 02/28 16:08 Order name: CT Neck Angio; Complete Time: 17:36 erika EC:44 Rate is 74 beats/min. Rhythm is regular. QRS Metaline is Normal. UT interval is normal. QRS erika interval is normal. QT interval is normal. No Q waves. No ST changes noted. Clinical impression: NSR w/ Non-specific ST/T Changes and No evidence of ischemia. Interpreted by me. Reviewed by me. Administered Medications: 16:20 Drug: NS 0.9% 1000 ml Route: IV; Rate: 1 bolus; Site: right antecubital; hb 17:40 Follow up: IV Status: Completed infusion; IV Intake: 1000ml eh3 16:20 Drug: foLIC Acid 1 mg Route: IVPB; Site: right antecubital; hb 17:20 Follow up: Response: No adverse reaction; IV Status: Completed infusion eh3 16:26 Drug: TNK FOR STROKE - Tenecteplase 0.25 mg/kg {Co-Signature: 3 (Nena Henry RN).} Route: IV; Rate: per protocol; Site: right antecubital; 17:00 Follow up: Response: Marked relief of symptoms; IV Status: Completed infusion eh3 16:40 Drug: Pepcid (famotidine) 20 mg Route: IVP; Site: right antecubital; hb 17:40 Follow up: Response: No adverse reaction eh3 16:40 Drug: Aspirin 81 mg Route: PO; hb 17:40 Follow up: Response: No adverse reaction eh3 Disposition Summary: 02/28/22 16:31 Transfer Ordered Transfer Location: [facility] erika Reason: Higher level of care erika Condition: Serious erika Problem: new erika Symptoms: are unchanged erika Accepting Physician: TO [facility](02/28/22 19:22) jb4 Diagnosis - Cerebral infarction, unspecified - RIGHT FACIAL WEAKNESS, RIGHT ARM WEAKNESS erika - Essential (primary) hypertension erika - Tobacco abuse counseling erika - Tobacco use erika - Elevated white blood cell count erika Forms: - Medication Reconciliation Form erika - SBAR form erika NIH Stroke Scale - NIH Stroke Score Date: 02/28/2022 Time: 16:00 Total Score = 4 1a. Level of Consciousness (LOC) - 0(Alert) 1b. Level of Consciousness (LOC) (Month \T\ Age) - 0(Both) 1c. LOC Commands (Open \T\ Closes Eyes/Mortgage Or Loan Underwriter) - 0(Both) 2. Best Gaze (Lateral Gaze Paresis) - 0(Normal) 3. Visual Field Loss - 0(No visual loss) 4. Facial Palsy - 1(Minor Paralysis) 5a. Left Arm: Motor (10-second hold) - 0(No drift) 5b. Right Arm: Motor (10-second hold) - 1(Drift) 6a. Left Leg: Motor (5-second hold - always test supine) - 0(No drift) 6b. Right Leg: Motor (5-second hold - always test supine) - 0(No drift) 7. Limb Ataxia (finger/nose \T\ heel/denton - test with eyes open) - 0(Absent) 8. Sensory Loss (pinprick arms/legs/face) - 1(Mild to moderate loss) 9. Best Language: Aphasia (description/naming/reading) - 0(No aphasia) 10. Dysarthria (speech clarity - read or repeat words) - 1(Mild to Moderate) 11. Extinction and Inattention (visual/tactile/auditory/spatial/personal) - 0(No abnormality) Initials: eh3 NIH Stroke Scale - NIH Stroke Score Date: 02/28/2022 Time: 16:24 Total Score = 6 1a. Level of Consciousness (LOC) - 0(Alert) 1b. Level of Consciousness (LOC) (Month \T\ Age) - 0(Both) 1c. LOC Commands (Open \T\ Closes Eyes/Mortgage Or Loan Underwriter) - 0(Both) 2. Best Gaze (Lateral Gaze Paresis) - 0(Normal) 3. Visual Field Loss - 0(No visual loss) 4. Facial Palsy - 2(Partial paralysis) 5a. Left Arm: Motor (10-second hold) - 0(No drift) 5b. Right Arm: Motor (10-second hold) - 1(Drift) 6a. Left Leg: Motor (5-second hold - always test supine) - 0(No drift) 6b. Right Leg: Motor (5-second hold - always test supine) - 0(No drift) 7. Limb Ataxia (finger/nose \T\ heel/denton - test with eyes open) - 1(Present in one limb) 8. Sensory Loss (pinprick arms/legs/face) - 0(Normal) 9. Best Language: Aphasia (description/naming/reading) - 1(Mild to moderate aphasia) 10. Dysarthria (speech clarity - read or repeat words) - 1(Mild to Moderate) 11. Extinction and Inattention (visual/tactile/auditory/spatial/personal) - 0(No abnormality) Initials: erika Signatures: Dispatcher [employer] EDMarck Carranza MD MD cha Baxter, Heather, RN RN Oscar Verma RN RN jb4 Nena Henry RN RN eh3 Nena Henry RN eh3 Corrections: (The following items were deleted from the chart) 17:37 16:31 TO [facility] , [facility] 19:22 17:37 TO [facility] , [facility] [id number]
--- NOTE | 2022-02-28 16:32 | ER ---
Nurse's Notes [facility] Name: Orville Menchaca Age: 71 yrs Sex: Male : 1950 Arrival Date: 02/28/2022 Time: 15:54 Bed 15 Private MD: Diagnosis: Cerebral infarction, unspecified-RIGHT FACIAL WEAKNESS, RIGHT ARM WEAKNESS;Essential (primary) hypertension;Tobacco abuse counseling;Tobacco use;Elevated white blood cell count Presentation: 02/28 15:54 Chief complaint: Slurred speech, right sided facial droop, and right arm numbness that hb started at 1450. Coronavirus screen: At this time, the client does not indicate any symptoms associated with coronavirus-19. Ebola Screen: No symptoms or risks identified at this time. An acute neurological deficit is present. The charge nurse has been notified. The patient has been moved to a treatment area. Pre-hospital glucose is not applicable to this patient. Initial Sepsis Screen: Does the patient meet any 2 criteria? No. Patient's initial sepsis screen is negative. Does the patient have a suspected source of infection? No. Patient's initial sepsis screen is negative. Risk Assessment: Do you want to hurt yourself or someone else? Patient reports no desire to harm self or others. Onset of symptoms was February 28, 2022 at 14:50. 15:54 Method Of Arrival: Ambulatory 15:54 Acuity: YOEL 2 hb Stroke Activation: Symptom onset < 3 hours Physician: Stroke Attending; Name: ; Notified At: ; Arrived At: Physician: Chief Stroke Resident; Name: ; Notified At: ; Arrived At: Physician: Stroke Resident; Name: ; Notified At: ; Arrived At: Physician: ED Attending; Name: ; Notified At: ; Arrived At: Physician: ED Resident; Name: ; Notified At: ; Arrived At: Historical: - Allergies: 16:10 No Known Allergies; hb - PMHx: 16:10 Hypertension; hb - Immunization history:: Adult Immunizations unknown. - Family history:: not pertinent. - Social history:: Smoking status: unknown. Screenin:00 [facility] ED Fall Risk Assessment (Adult) History of falling in the last 3 months, eh3 including since admission No falls in past 3 months (0 pts) Confusion or Disorientation No (0 pts) Intoxicated or Sedated No (0 pts) Impaired Gait No (0 pts) Mobility Assist Device Used No (0 pt) Altered Elimination No (0 pt) Score/Fall Risk Level 0 - 2 = Low Risk Oriented to surroundings, Maintained a safe environment, Educated pt \\T\\ family on fall prevention, incl call for assistance when getting out of bed, Assessed \\T\\ reinforced patient's understanding of fall precautions, Hourly rounding (assess needs \\T\\ fall precautionary measures) done. Abuse screen: Denies threats or abuse. Denies injuries from another. Nutritional screening: No deficits noted. Tuberculosis screening: No symptoms or risk factors identified. Assessment: 16:00 Pain: Denies pain. Neuro: Level of Consciousness is awake, alert, obeys commands, eh3 Oriented to person, place, time, situation, Termite Inspector are equal bilaterally Weakness in right arm(s) Speech is slurred, Facial droop on right, Pupils are PERRLA, paresthesias in right arm. Cardiovascular: Capillary refill < 3 seconds Patient's skin is warm and dry. Respiratory: Airway is patent Respiratory effort is even, unlabored, Respiratory pattern is regular, symmetrical. GI: No signs and/or symptoms were reported involving the gastrointestinal system. Abdomen is round non-distended. : No signs and/or symptoms were reported regarding the genitourinary system. EENT: No signs and/or symptoms were reported regarding the EENT system. Derm: No signs and/or symptoms reported regarding the dermatologic system. Musculoskeletal: No signs and/or symptoms reported regarding the musculoskeletal system. Range of motion: intact in all extremities. 16:11 VAN Scoring:. TNKase (Tenecteplase) Screening: Indications: Definite evidence of hb stroke, ischemic, embolic, or hypertensive: Yes. Treatment will start within 4.5 hours onset of symptoms: Yes. No evidence of intracranial hemorrhage or CT of head and no evidence of peripheral hemorrhage or recent CVA: Yes. Contraindications: Intracranial hemorrhage and its risk factor and suspicion of subarachnoid bleed: No. Patient reports onset of signs and symptoms of stroke greater than 6 hours ago: No. Glucose less than 50 or greater than 400 mg/dl: No. Is the patient on Aspirin, Heparin, or Warfarin: No. Recent GA suspected and/or GA-related pericarditis: No. Active peripheral bleeding/history of intracranial bleeding: No. Recent serious head injury or stroke in the past 3 months: No. Intracranial neoplasm, AV Malformation, Aneurysm: No. Over 80 years old: No. Is the patient : No. Coma, severe obtundation, fixed pupils, deviation, or complete hemiplegia: No. Rapidly improving condition or minor deficit: No. Major surgery in the previous 2 weeks: No. Gastrointestinal or urinary tract hemorrhage within the previous 21 days: No. Arterial/Lumbar puncture at a non-compressible site within the previous 7 days: No. Seizure at onset of stroke or other uncontrolled chronic seizure disorder: No. Is the patient on a "statin" medication: No. 16:40 Patient has been NPO before screening. The patient is alert, and able to follow 3 commands. The patient exhibits slurred or garbled speech. The patient is not exhibiting difficulty speaking. The patient is exhibiting difficulty understanding words. The patient is able to swallow own secretions with no drooling or need for suction. Patient tolerated one teaspoon of water. No drooling, immediate coughing, gurgling, or clearing of the throat was noted. The patient tolerated 90mL of water. No drooling, immediate coughing, gurgling, or clearing of the throat was noted. The patient passed the bedside swallow screening. Oral medications may be given as ordered. Contact Physician for further diet orders. Provider notified of bedside swallow screening results: Marck Agustin MD. 17:30 Reassessment: Patient appears in no apparent distress at this time. Patient and/or 3 family updated on plan of care and expected duration. Pain level reassessed. Patient is alert, oriented x 3, equal unlabored respirations, skin warm/dry/pink. Patient states symptoms have improved. 18:30 Reassessment: Patient appears in no apparent distress at this time. Patient and/or 3 family updated on plan of care and expected duration. Pain level reassessed. Patient is alert, oriented x 3, equal unlabored respirations, skin warm/dry/pink. Vital Signs: 15:54 BP 165 / 85; Pulse 77; Resp 16; Temp 98.3; Pulse Ox 100% on R/A; Weight 80.74 kg; hb Height 5 ft. 9 in. (175.26 cm); Pain 0/10; 16:30 BP 152 / 85; Pulse 73; Resp 18; Pulse Ox 99% on R/A; eh3 17:30 BP 149 / 80; Pulse 78; Resp 18; Pulse Ox 100% on R/A; eh3 18:30 BP 142 / 78; Pulse 72; Resp 18; Pulse Ox 99% on R/A; eh3 15:54 Body Mass Index 26.29 (80.74 kg, 175.26 cm) hb [place] Coma Score: 16:24 Eye Response: spontaneous(4). Verbal Response: oriented(5). Motor Response: obeys erika commands(6). Total: 15. NIH Stroke Scale Scores: 16:00 NIHSS Score: 4 eh3 16:24 NIHSS Score: 6 [facility] ED Course: 15:54 Patient arrived in ED. as 16:06 Marck Agustin MD is Attending Physician. [facility] 16:10 Triage completed. hb 16:10 Arm band placed on. hb 16:14 CT Stroke Brain w/o Contrast In Process Unspecified. EDMS 16:18 SARS RAPID Sent. mm9 16:18 Sed Rate Sent. mm9 16:18 CRP Sent. mm9 16:18 Basic Metabolic Panel Sent. mm9 16:18 CBC with Diff Sent. mm9 16:19 Patient has correct armband on for positive identification. Placed in gown. Bed in low mm9 position. Call light in reach. Side rails up X2. Adult w/ patient. Warm blanket given. Pillow given. letter carrier on. Pulse ox on. NIBP on. 16:19 LFT's Sent. mm9 16:19 Magnesium Sent. mm9 16:19 NT PRO-BNP Sent. mm9 16:19 PT-INR Sent. mm9 16:19 Troponin HS Sent. mm9 16:19 Initial lab(s) drawn, by me, sent to lab. EKG done, by ED staff, reviewed by Marck Agustin MD COVID swab sent to lab. Inserted saline lock: 20 gauge in right antecubital area, using aseptic technique. Blood collected. 16:20 Inserted saline lock: 20 gauge in left antecubital area, using aseptic technique. eh3 16:36 Nena Henry, RN is Primary Nurse. eh3 17:00 CT Head Angio In Process Unspecified. EDMS 17:00 CT Neck Angio In Process Unspecified. EDMS 17:23 XRAY Chest (1 view) In Process Unspecified. EDMS 19:00 No provider procedures requiring assistance completed. Patient transferred, IV remains eh3 in place. Administered Medications: 16:20 Drug: NS 0.9% 1000 ml Route: IV; Rate: 1 bolus; Site: right antecubital; hb 17:40 Follow up: IV Status: Completed infusion; IV Intake: 1000ml 3 16:20 Drug: foLIC Acid 1 mg Route: IVPB; Site: right antecubital; hb 17:20 Follow up: Response: No adverse reaction; IV Status: Completed infusion 3 16:26 Drug: TNK FOR STROKE - Tenecteplase 0.25 mg/kg {Co-Signature: 3 (Nena Henry RN).} Route: IV; Rate: per protocol; Site: right antecubital; 17:00 Follow up: Response: Marked relief of symptoms; IV Status: Completed infusion 3 16:40 Drug: Pepcid (famotidine) 20 mg Route: IVP; Site: right antecubital; hb 17:40 Follow up: Response: No adverse reaction [facility] 16:40 Drug: Aspirin 81 mg Route: PO; hb 17:40 Follow up: Response: No adverse reaction 3 Medication: 19:00 VIS not applicable for this client. 3 Intake: 17:40 IV: 1000ml; Total: 1000ml. 3 Outcome: 16:31 ER care complete, transfer ordered by erika 19:00 Transferred by ground EMS to [facility], Transfer form completed. [facility] 19:00 Condition: stable 19:00 Instructed on the need for transfer. 19:22 Patient left the ED. [email or web address] NIH Stroke Scale - NIH Stroke Score Date: 02/28/2022 Time: 16:00 Total Score = 4 1a. Level of Consciousness (LOC) - 0(Alert) 1b. Level of Consciousness (LOC) (Month \\T\\ Age) - 0(Both) 1c. LOC Commands (Open \\T\\ Closes Eyes/Quarry Manager) - 0(Both) 2. Best Gaze (Lateral Gaze Paresis) - 0(Normal) 3. Visual Field Loss - 0(No visual loss) 4. Facial Palsy - 1(Minor Paralysis) 5a. Left Arm: Motor (10-second hold) - 0(No drift) 5b. Right Arm: Motor (10-second hold) - 1(Drift) 6a. Left Leg: Motor (5-second hold - always test supine) - 0(No drift) 6b. Right Leg: Motor (5-second hold - always test supine) - 0(No drift) 7. Limb Ataxia (finger/nose \\T\\ heel/[place] - test with eyes open) - 0(Absent) 8. Sensory Loss (pinprick arms/legs/face) - 1(Mild to moderate loss) 9. Best Language: Aphasia (description/naming/reading) - 0(No aphasia) 10. Dysarthria (speech clarity - read or repeat words) - 1(Mild to Moderate) 11. Extinction and Inattention (visual/tactile/auditory/spatial/personal) - 0(No abnormality) Initials: 3 NIH Stroke Scale - NIH Stroke Score Date: 02/28/2022 Time: 16:24 Total Score = 6 1a. Level of Consciousness (LOC) - 0(Alert) 1b. Level of Consciousness (LOC) (Month \\T\\ Age) - 0(Both) 1c. LOC Commands (Open \\T\\ Closes Eyes/Quarry Manager) - 0(Both) 2. Best Gaze (Lateral Gaze Paresis) - 0(Normal) 3. Visual Field Loss - 0(No visual loss) 4. Facial Palsy - 2(Partial paralysis) 5a. Left Arm: Motor (10-second hold) - 0(No drift) 5b. Right Arm: Motor (10-second hold) - 1(Drift) 6a. Left Leg: Motor (5-second hold - always test supine) - 0(No drift) 6b. Right Leg: Motor (5-second hold - always test supine) - 0(No drift) 7. Limb Ataxia (finger/nose \\T\\ heel/d[place] - test with eyes open) - 1(Present in one limb) 8. Sensory Loss (pinprick arms/legs/face) - 0(Normal) 9. Best Language: Aphasia (description/naming/reading) - 1(Mild to moderate aphasia) 10. Dysarthria (speech clarity - read or repeat words) - 1(Mild to Moderate) 11. Extinction and Inattention (visual/tactile/auditory/spatial/personal) - 0(No abnormality) Initials: erika Signatures: Dispatcher [employer] Marck Salomon MD MD cha Martinez, Amelia as Baxter, Heather, RN RN Oscar Verma ZABRINA RN [id number] Carl, ZABRINA Barrett RN eh3 [place], [facility]9 Nena Henry RN eh3
[2022-02-28] MEDS ORDERED: FAMOTIDINE 20 MG/2 ML VIAL IV ONE (16:40)
[2022-02-28] MEDS ORDERED: ASPIRIN EC 81 MG TAB PO ONE (16:40)
[2022-02-28 16:41] LABS: Bilirubin Direct 0.2 mg/dL (0-0.2); Bilirubin Total 0.7 mg/dL (0.2-1.0); C-Reactive Protein 7.95 mg/L (<3.00); Magnesium 2.1 mg/dL (1.6-2.4); Potassium 3.6 mmol/L (3.5-5.1); Protein, Total 9.2 g/dL (6.4-8.2); Troponin High Sensitivity 13.5 pg/mL (<58.9)
[2022-02-28 16:57] LABS: SARS-CoV-2 Antigen Rapid Res Negative (Negative)
--- NOTE | 2022-02-28 17:14 | RAD REPORT ---
EXAM DESCRIPTION: CT - Head angio - 02/28/2022 4:58 pm CLINICAL HISTORY: Neuro deficit, acute, stroke suspected Headache, drowsiness, CVA symptomology COMPARISON: Ct Stroke Brain Wo Cont dated 02/28/2022 TECHNIQUE: CT angiography of the head was performed with MIPs. All CT scans are performed using dose optimization technique as appropriate and may include automated exposure control or mA/KV adjustment according to patient size. FINDINGS: No evidence of aneurysm is detected. No flow-limiting stenosis or vascular malformation id entified. Antegrade flow is seen in the vertebral arteries. The vertebral arteries are codominant. The visualized dural venous sinuses are patent. IMPRESSION: No significant flow abnormality is detected.
--- NOTE | 2022-02-28 17:15 | RAD REPORT ---
EXAM DESCRIPTION: CT - Neck Angio - 02/28/2022 4:58 pm CLINICAL HISTORY: Neuro deficit, acute, stroke suspected Headache, drowsiness, CVA symptomology COMPARISON: No comparisons TECHNIQUE: CT angiography of the neck vessels was performed with MIPs. All CT scans are performed using dose optimization technique as appropriate and may include automated exposure control or mA/KV adjustment according to patient size. FINDINGS: A left aortic arch is identified with normal three vessel configuration of the great vesse ls. No significant flow abnormality is seen of the common carotid bilaterally. Mild mixed plaque is seen in both carotid bulbs. No significant carotid stenosis identified. Normal flow is seen within both vertebral arteries. IMPRESSION: No significant flow abnormality of the neck vessels is identified.
--- NOTE | 2022-02-28 17:42 | RAD REPORT ---
EXAM DESCRIPTION: RAD - Chest Single View - 02/28/2022 5:21 pm CLINICAL HISTORY: COUGH Chest pain. COMPARISON: No comparisons FINDINGS: Portable technique limits examination quality. The lungs are grossly clear. The heart is mildly enlarged in size. No displaced fractures. IMPRESSION: No acute intrathoracic process suspected.
[2022-02-28 19:38] VITALS: BP 165/85; TEMP 98.3; O2SAT 100
--- NOTE | 2022-03-01 16:06 | EKG ---
Test Date: 2022-02-28 Test Time: 16:33:56 Patient Consumer Marketer: KEN MEASUREMENT RESULTS: Intervals: Rate: 74 CT: 174 QRSD: 152 QT: 442 QTc: 490 [place]: P: 46 CT: 174 QRS: -65 T: 15 INTERPRETIVE STATEMENTS: Normal sinus rhythm Right bundle branch block Left anterior fascicular block Bifascicular block Minimal voltage criteria for LVH, may be normal variant Abnormal ECG Compared to ECG 03/14/2006 03:40:16 Right bundle-branch block now present Left anterior fascicular block now present Bifascicular block now present Electronically Signed On 03-01-22 16:04:33 CURATOR OF EDUCATION by Delvis Soliz
== END 2022-02-28 19:22 | disposition short-term general hospital (02) ==
LOC: ER 15:53
DX: I63.9 Cerebral infarction, unspecified (principal); R53.1 Weakness; I10 Essential (primary) hypertension; R29.704 NIHSS score 4; D72.829 Elevated white blood cell count, unspecified; Z72.0 Tobacco use; Z71.6 Tobacco abuse counseling; Z20.822 Contact with and (suspected) exposure to COVID-19
CPT/HCPCS: 93005; 85025; 80048; 36415; 83735; 85610; 82947; 80076; 85652; 84484; 83880; 86140; 70496; 70498; 70450; 71045; 87811; Q9967; J3101; J7030; 92977; 96365; 96375; 99285